=== PATIENT | female | born 1995 | race Caucasian/White ===

== ENCOUNTER 2017-08-08 17:49 | Emergency (ER) | payer SELFPAY ==
[~2017-08-08] VITALS: Ht 167.6 cm; Wt 68.0 kg
--- NOTE | 2017-08-08 18:15 | EKG ---
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
[2017-08-08] MEDS ORDERED: KETOROLAC 30 MG/ML VIAL. IV ONE (18:45)
[2017-08-08 18:48] LABS: BASO # 0.1 x10^3/uL (0.0-0.2); BASO % 1 % (0-3); EOS # 0.3 x10^3/uL (0.0-0.7); EOS % 5 % (0-3); HEMATOCRIT 40.2 % (36.0-47.0); HEMOGLOBIN 13.8 g/dL (12.0-15.5); LYMPH # 1.9 x10^3/uL (1.0-4.8); LYMPH % 27 % (24-48); MEAN CORPUSCULAR HEMOGLOBIN 33 pg (25-35); MEAN CORPUSCULAR HGB CONC 34 g/dL (31-37); MEAN CORPUSCULAR VOLUME 95 fL (79-100); MONO # 0.5 x10^3/uL (0.0-1.1); MONO % 7 % (0-9); NEUT # 4.2 x10^3uL (1.8-7.7); NEUT % 60 % (31-73); PLATELET COUNT 277 x10^3/uL (140-400); RED BLOOD COUNT 4.24 x10^6/uL (3.50-5.40); RED CELL DISTRIBUTION WIDTH 14.3 % (11.5-14.5)
[2017-08-08 19:02] LABS: ALBUMIN 3.7 g/dL (3.4-5.0); ALBUMIN/GLOBULIN RATIO 1.1 (1.0-1.7); CALCIUM 9.4 mg/dL (8.5-10.1); CREATININE 0.6 mg/dL (0.6-1.0); GFR 127.5; POTASSIUM 3.7 mmol/L (3.5-5.1); TOTAL BILIRUBIN 0.5 mg/dL (0.2-1.0); TOTAL PROTEIN 7.1 g/dL (6.4-8.2)
[2017-08-08] MEDS ORDERED: NAPR-514 PO (19:23)
--- NOTE | 2017-08-08 19:24 | PHYS DOC ---
Adult General Chief Complaint Chief Complaint: SHORTNESS OF BREATH HPI HPI Patient is a 22-year-old female who presents here today complaining of right- sided chest wall pain that started around 1 PM. Patient denies any known exacerbating. Patient presents pain increases with deep inspiration. Patient has any recent fevers shakes chills nausea vomiting diarrhea cough cold rhinorrhea abdominal pain dysuria frequency urgency right upper quadrant pain. Patient reports no change with exertion or rest. Patient reports only change with increased inspiration and cough. Review of systems: Constitutional: Denies fever or chills Eyes: Denies change in visual acuity, redness, or eye pain HENT: Denies nasal congestion or sore throat Respiratory: Denies cough or shortness of breath All other systems were reviewed and found to be within normal limits, except as documented in this note. Physical exam: Constitutional: Well developed, well nourished, no acute distress, non-toxic appearance. HENT: Normocephalic, atraumatic, bilateral external ears normal, nose normal. Eyes: PERRLA, EOMI, conjunctiva normal, no discharge. Neck: Normal range of motion, no tenderness, supple, no stridor. Cardiovascular: Heart rate regular rhythm, 100% repeatable tenderness to palpation to her right anterior chest wall. Daughter present repeatable discomfort with deep inspiration. Lungs & Thorax: Bilateral breath sounds clear to auscultation Abdomen: No abdominal distention. Skin: Warm, dry, no erythema, no rash. Back: Normal spinal curvature Extremities: No tenderness, no cyanosis, no clubbing, ROM intact, no edema. Neurologic: Alert and oriented X 3, normal motor function, normal sensory function, no focal deficits noted. Psychologic: Affect normal, judgement normal, mood normal. Patient's ER physical exam was most remarkable: EKG as interpreted by ER physician reveals: Normal sinus rhythm nonspecific ST- T wave abnormalities no STEMI. Chest x-ray as interpreted by ER physician reveals: Normal heart no infiltrates or effusions Labs reviewed: Normal Assessment and plan: 1. 22-year-old. This will right sided anterior chest wall pain. Most likely secondary mechanical strain. Workup was made cardiac etiology PE dissection cholecystitis extremely low and likelihood. Patient be given ibuprofen and instructions follow-up with her primary care physician for further evaluation of this pain. While the ER the patient was given Toradol IV with significant improvement in her discomfort. Patient's currently takes and her phone and laughing and smiling and does not appear to be in any acute distress. Current Medications Current Medications Current Medications Medications (Trade) Dose Ordered Sig/Juaquin Start Time Stop Time Status Last Admin Dose Admin Ketorolac Tromethamine (Toradol) 30 mg 1X ONCE 08/08/17 18:45 08/08/17 18:46 UNV Allergies Allergies Allergies Coded Allergies Type Severity Reaction Last Updated Verified No Known Drug Allergies 08/08/17 No Current Patient Data Lab Results Laboratory Tests Test 08/08/17 18:30 White Blood Count 7.0 x10^3/uL (4.0-11.0) Red Blood Count 4.24 x10^6/uL (3.50-5.40) Hemoglobin 13.8 g/dL (12.0-15.5) Hematocrit 40.2 % (36.0-47.0) Mean Corpuscular Volume 95 fL (79-100) Mean Corpuscular Hemoglobin 33 pg (25-35) Mean Corpuscular Hemoglobin Concent 34 g/dL (31-37) Red Cell Distribution Width 14.3 % (11.5-14.5) Platelet Count 277 x10^3/uL (140-400) Neutrophils (%) (Auto) 60 % (31-73) Lymphocytes (%) (Auto) 27 % (24-48) Monocytes (%) (Auto) 7 % (0-9) Eosinophils (%) (Auto) 5 % (0-3) H Basophils (%) (Auto) 1 % (0-3) Neutrophils # (Auto) 4.2 x10^3uL (1.8-7.7) Lymphocytes # (Auto) 1.9 x10^3/uL (1.0-4.8) Monocytes # (Auto) 0.5 x10^3/uL (0.0-1.1) Eosinophils # (Auto) 0.3 x10^3/uL (0.0-0.7) Basophils # (Auto) 0.1 x10^3/uL (0.0-0.2) Sodium Level 143 mmol/L (136-145) Potassium Level 3.7 mmol/L (3.5-5.1) Chloride Level 107 mmol/L (98-107) Carbon Dioxide Level 27 mmol/L (21-32) Anion Gap 9 (6-14) Blood Urea Nitrogen 8 mg/dL (7-20) Creatinine 0.6 mg/dL (0.6-1.0) Estimated GFR (Cockcroft-Gault) 127.5 BUN/Creatinine Ratio 13 (6-20) Glucose Level 86 mg/dL (70-99) Calcium Level 9.4 mg/dL (8.5-10.1) Total Bilirubin 0.5 mg/dL (0.2-1.0) Aspartate Amino Transferase (AST) 14 U/L (15-37) L Alanine Aminotransferase (ALT) 17 U/L (14-59) Alkaline Phosphatase 82 U/L (46-116) Troponin I Quantitative < 0.017 ng/mL (0-0.055) Total Protein 7.1 g/dL (6.4-8.2) Albumin 3.7 g/dL (3.4-5.0) Albumin/Globulin Ratio 1.1 (1.0-1.7) EKG EKG [] Radiology/Procedures Radiology/Procedures [] Course & Med Decision Making Course & Med Decision Making Pertinent Labs and Imaging studies reviewed. (See chart for details) [] Dragon Disclaimer Dragon Disclaimer This electronic medical record was generated, in whole or in part, using a voice recognition dictation system. Departure Departure: Impression: Primary Impression: Chest wall pain Disposition: 01 HOME, SELF-CARE Condition: IMPROVED Referrals: YOGI DUGAN DO (PCP) Patient Instructions: Chest Wall Pain Scripts Naproxen (NAPROXEN) 500 Mg Tablet 1 TAB PO BID, #20 TAB Prov: GILLIAN ENGEL MD 08/08/17 GILLIAN ENGEL MD Aug 08, 2017 19:24
[2017-08-08 19:58] VITALS: BP 119/79
--- NOTE | 2017-08-09 07:31 | RAD ---
Chest, 2 views, 08/08/2017: History: Shortness of breath, right-sided chest pain The heart size is normal. No pulmonary infiltrate is seen. There is no evidence of pleural fluid. IMPRESSION: No acute cardiopulmonary abnormality is detected.
== END 2017-08-08 19:56 | disposition home or self-care (01) ==
LOC: ER 17:49
DX: R07.89 Other chest pain (principal)
CPT/HCPCS: 36415; 71046; 80053; 84484; 85025; 93005; 96374; 99285; J1885

== ENCOUNTER 2020-06-09 09:43 | Emergency (ER) | payer SELFPAY ==
[~2020-06-09] VITALS: Ht 160 cm; Wt 54.4 kg
[~2020-06-09 09:43] MED LIST: NAPR-514 PO
[2020-06-09] MEDS ORDERED: IPRATRPIUM/ALBUTEROL 0.5/2.5MG 3 ML NEBU. NEB ONE ×2 (10:00→11:30)
[2020-06-09] MEDS ORDERED: predniSONE 20 MG TABLET PO ONE (10:15)
--- NOTE | 2020-06-09 10:48 | EKG ---
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
[2020-06-09 11:13] LABS: BASO % 0 % (0-3); EOS # 0.8 x10^3/uL (0.0-0.7); EOS % 8 % (0-3); HEMATOCRIT 42.6 % (36.0-47.0); HEMOGLOBIN 14.7 g/dL (12.0-15.5); LYMPH # 2.1 x10^3/uL (1.0-4.8); LYMPH % 22 % (24-48); MEAN CORPUSCULAR HEMOGLOBIN 33 pg (25-35); MEAN CORPUSCULAR HGB CONC 35 g/dL (31-37); MEAN CORPUSCULAR VOLUME 94 fL (79-100); MONO # 0.5 x10^3/uL (0.0-1.1); MONO % 6 % (0-9); NEUT # 6.1 x10^3uL (1.8-7.7); NEUT % 63 % (31-73); PLATELET COUNT 255 x10^3/uL (140-400); RED BLOOD COUNT 4.51 x10^6/uL (3.50-5.40); RED CELL DISTRIBUTION WIDTH 12.5 % (11.5-14.5); WHITE BLOOD COUNT 9.6 x10^3/uL (4.0-11.0)
[2020-06-09 11:24] LABS: CALCIUM 8.6 mg/dL (8.5-10.1); CREATININE 0.6 mg/dL (0.6-1.0); GFR 123.9; POTASSIUM 3.1 mmol/L (3.5-5.1)
[2020-06-09 11:36] LABS: ALBUMIN 3.4 g/dL (3.4-5.0); ALBUMIN/GLOBULIN RATIO 1.1 (1.0-1.7); TOTAL BILIRUBIN 0.2 mg/dL (0.2-1.0); TOTAL PROTEIN 6.6 g/dL (6.4-8.2)
[2020-06-09 11:41] LABS: INFLUENZA A PATIENT NEGATIVE (NEGATIVE); INFLUENZA B PATIENT NEGATIVE (NEGATIVE)
[2020-06-09 11:42] LABS: RSV PATIENT NEGATIVE (NEGATIVE)
--- NOTE | 2020-06-09 11:54 | PHYS DOC ---
Past History Past Medical History: No Pertinent History Past Surgical History: Alcohol Use: Occasionally Drug Use: None Adult General Chief Complaint Chief Complaint: SHORTNESS OF BREATH HPI HPI Patient is a 25-year-old female who denies any past however now presenting to the emergency department complaining of new onset of shortness of breath. Patient states that over the last 3 months she developed worsening sensation of difficulty breathing that suddenly increased in severity this morning to the point where she felt like she was unable to take a deep breath. Notes that her boyfriend was living with her daughter from asthma a few months ago. Denies any fever, chills, cough, dizziness or lightheadedness. Review of Systems Review of Systems Constitutional: Denies fever or chills [] Eyes: Denies change in visual acuity, redness, or eye pain [] HENT: Denies nasal congestion or sore throat [] Respiratory: Denies cough or shortness of breath [] Cardiovascular: No additional information not addressed in HPI [] GI: Denies abdominal pain, nausea, vomiting, bloody stools or diarrhea [] : Denies dysuria or hematuria [] Musculoskeletal: Denies back pain or joint pain [] Integument: Denies rash or skin lesions [] Neurologic: Denies headache, focal weakness or sensory changes [] Endocrine: Denies polyuria or polydipsia [] All other systems were reviewed and found to be within normal limits, except as documented in this note. Current Medications Current Medications Current Medications Medications (Trade) Dose Ordered Sig/Juaquin Start Time Stop Time Status Last Admin Dose Admin Albuterol/ Ipratropium (Duoneb) 6 ml 1X ONCE 06/09/20 11:30 06/09/20 11:31 DC 06/09/20 11:41 6 ML Prednisone (Prednisone) 60 mg 1X ONCE 06/09/20 10:15 06/09/20 10:16 DC 06/09/20 10:48 60 MG Allergies Allergies Allergies Coded Allergies Type Severity Reaction Last Updated Verified No Known Drug Allergies 06/09/20 No Physical Exam Physical Exam Constitutional: Well developed, well nourished, no acute distress, non-toxic appearance. [] HENT: Normocephalic, atraumatic, bilateral external ears normal, oropharynx moist, no oral exudates, nose normal. [] Eyes: PERRLA, EOMI, conjunctiva normal, no discharge. [] Neck: Normal range of motion, no tenderness, supple, no stridor. [] Cardiovascular:Heart rate regular rhythm, no murmur [] Lungs & Thorax: Severe rhonchorous breath sounds bilaterally with significant expiratory wheezing Abdomen: Bowel sounds normal, soft, no tenderness, no masses, no pulsatile masses. [] Skin: Warm, dry, no erythema, no rash. [] Back: No tenderness, no CVA tenderness. [] Extremities: No tenderness, no cyanosis, no clubbing, ROM intact, no edema. [] Neurologic: Alert and oriented X 3, normal motor function, normal sensory function, no focal deficits noted. [] Psychologic: Affect normal, judgement normal, mood normal. [] Current Patient Data Vital Signs Vital Signs Date Time Temp Pulse Resp B/P (MAP) Pulse Ox O2 Delivery O2 Flow Rate FiO2 06/09/20 09:53 98.2 94 22 140/96 (111) 97 Room Air Lab Results Laboratory Tests Test 06/09/20 10:40 06/09/20 10:44 06/09/20 11:40 White Blood Count 9.6 x10^3/uL (4.0-11.0) Red Blood Count 4.51 x10^6/uL (3.50-5.40) Hemoglobin 14.7 g/dL (12.0-15.5) Hematocrit 42.6 % (36.0-47.0) Mean Corpuscular Volume 94 fL (79-100) Mean Corpuscular Hemoglobin 33 pg (25-35) Mean Corpuscular Hemoglobin Concent 35 g/dL (31-37) Red Cell Distribution Width 12.5 % (11.5-14.5) Platelet Count 255 x10^3/uL (140-400) Neutrophils (%) (Auto) 63 % (31-73) Lymphocytes (%) (Auto) 22 % (24-48) L Monocytes (%) (Auto) 6 % (0-9) Eosinophils (%) (Auto) 8 % (0-3) H Basophils (%) (Auto) 0 % (0-3) Neutrophils # (Auto) 6.1 x10^3uL (1.8-7.7) Lymphocytes # (Auto) 2.1 x10^3/uL (1.0-4.8) Monocytes # (Auto) 0.5 x10^3/uL (0.0-1.1) Eosinophils # (Auto) 0.8 x10^3/uL (0.0-0.7) H Basophils # (Auto) 0.0 x10^3/uL (0.0-0.2) Sodium Level 142 mmol/L (136-145) Potassium Level 3.1 mmol/L (3.5-5.1) L Chloride Level 104 mmol/L (98-107) Carbon Dioxide Level 27 mmol/L (21-32) Anion Gap 11 (6-14) Blood Urea Nitrogen 6 mg/dL (7-20) L Creatinine 0.6 mg/dL (0.6-1.0) Estimated GFR (Cockcroft-Gault) 123.9 BUN/Creatinine Ratio 10 (6-20) Glucose Level 95 mg/dL (70-99) Calcium Level 8.6 mg/dL (8.5-10.1) Total Bilirubin 0.2 mg/dL (0.2-1.0) Aspartate Amino Transferase (AST) 15 U/L (15-37) Alanine Aminotransferase (ALT) 24 U/L (14-59) Alkaline Phosphatase 100 U/L (46-116) FD-Ldz-X-Type Natriuretic Peptide 21 pg/mL (0-124) Total Protein 6.6 g/dL (6.4-8.2) Albumin 3.4 g/dL (3.4-5.0) Albumin/Globulin Ratio 1.1 (1.0-1.7) Influenza Type A (Rapid) Negative (NEGATIVE) Influenza Type B (Rapid) Negative (NEGATIVE) POC RSV Rapid Screen Negative (NEGATIVE) POC Urine HCG, Qualitative hcg negative (Negative) EKG EKG [] Radiology/Procedures Radiology/Procedures [] Heart Score Risk Factors: Risk Factors: DM, Current or recent (<one month) smoker, HTN, HLP, family history of CAD, obesity. Risk Scores: Risk Factors: DM, Current or recent (<one month) smoker, HTN, HLP, family history of CAD, obesity. Course & Med Decision Making Course & Med Decision Making Pertinent Labs and Imaging studies reviewed. (See chart for details) 25-year-old female presented with new onset of significant expiratory wheezing likely suggesting new onset of asthma. Because of the sudden onset of this and no history will obtain an x-ray and labs to make sure there is no other underlying etiology or infectious cause. Also have to be considered of cardiogenic source. We will treat the patient with duo nebs and steroids and reevaluate. 12:49 -patient received duo nebs and steroids in [place] asymptomatic. Lungs are clear to auscultation. Labs and x-ray reviewed without any significant findings. At this time will discharge patient home with an albuterol inhaler, prednisone taper and primary care physician follow-up. I spoken with the patient and her caregivers. I explained the patient's condition, diagnoses and treatment plan based on the information available to me at this time. I have answered the patient and her caregiver's questions and addressed any concerns. The patient and her caregivers have a good understanding of patient's diagnosis, condition and treatment plan as can be expected at this point. Vital signs have been stable. Patient's condition is stable and appropriate for discharge from the emergency department. Patient will pursue further outpatient evaluation with primary care physician or other designated or consulting physician as outlined in the discharge instructions. The patient and/or caregivers are agreeable to this plan of care and follow-up instructions have been explained in detail. The patient and/or caregivers have received these instructions in written form and have expressed an understanding of the discharge instructions. The patient and/or caregivers are aware that any significant change of condition or worsening of symptoms should prompt immediate return to this or the closest emergency department or call to 911. [place] Disclaimer Dragon Disclaimer This electronic medical record was generated, in whole or in part, using a voice recognition dictation system. Departure Departure: Impression: Primary Impression: Acute asthma Disposition: 01 DC HOME SELF CARE/HOMELESS Condition: GOOD Referrals: YOGI DUGAN DO (PCP) Patient Instructions: Asthma Attacks, Prevention, Asthma, Adult Additional Instructions: EMERGENCY DEPARTMENT GENERAL DISCHARGE INSTRUCTIONS Thank you for coming to [facility] Emergency Department (ED) today and trusting us with you care. We trust that you had a positive experience in our Emergency Department. If you wish to speak to the department management, you may call the Director at [phone]. YOUR FOLLOW UP INSTRUCTIONS ARE FOLLOWS: 1. Do you have a private Doctor? If you do not have a private doctor, please ask for a resource list of physicians or clinics that may be able to assist you with follow up care. 2. The Emergency Physicain has interpreted your x-rays. The X-Ray specialist will also review them. If there is a change in the findings, you will be notified in 48 hours when at all possible. 3. A lab test or culture has been done, your results will be reviewed and you will be notified if you need a change in treatment. ADDITIONAL INSTRUCTIONS AND INFORMATION: 1. Your care today has been supervised by a physician who is specially trained in emergency care. Many problems require more than one evaluation for a complete diagnosis and treatment. We recommend that you schedule your follow up appointment as recommended to ensure complete treatment of you illness or injury. If you are unable to obtain follow up care and continue to have a problem, or if your condition worsens, we recommend that you return to the ED. 2. We are not able to safely determine your condition over the phone nor are we able to give sound medical advice over the phone. For these safety reasons, if you call for medical advice we will ask you to come to the ED for further evaluation. 3. If you have any questions regarding these discharge instructions please call the ED at [phone]. SAFETY INFORMATION: In the interest of safety, wellness, and injury prevention; we encourage you to wear your sealbelt, if you smoke; quite smoking, and we encourage family to use a protective helmet for bicycling and other sporting events that present an increased risk for head injury. IF YOUR SYMPTOMS WORSEN OR NEW SYMPTOMS DEVELOP, OR YOU HAVE CONCERNS ABOUT YOUR CONDITION; OR IF YOUR CONDITION WORSENS WHILE YOU ARE WAITING FOR YOUR FOLLOW UP APPOINTMENT; EITHER CONTACT YOUR PRIMARY CARE DOCTOR, THE PHYSICIAN WHOSE NAME AND NUMBER YOU WERE GIVEN, OR RETURN TO THE ED IMMEDIATELY. Scripts Prednisone (PREDNISONE) 20 Mg Tablet 1 TAB PO DAILY for asthma, #5 TAB Prov: DAVE OLIVER MD 06/09/20 Albuterol Sulfate (PROAIR HFA INHALER) 8.5 Gm Hfa.aer.ad 2 PUFF IH PRN Q4-6HRS PRN for wheezing for 21 Days, #1 INHALER 0 Refills Prov: DAVE OLIVER MD 06/09/20 DAVE OLIVER MD Jun 09, 2020 11:54
[2020-06-09 12:15] LABS: BACTERIA,URINE MANY /HPF (0-FEW); BILIRUBIN,URINE NEG (NEG); CLARITY,URINE HAZY; COLOR,URINE YELLOW; GLUCOSE,URINE NEG (NEG); NITRITE,URINE NEG (NEG); RBC,URINE RARE /HPF (0-2); SQUAMOUS EPITHELIAL CELL,UR MANY /LPF; UROBILINOGEN,URINE 0.2 mg/dL (0.2 mg/dL)
--- NOTE | 2020-06-09 12:19 | RAD ---
EXAM: Chest, single view. HISTORY: Short of breath. COMPARISON: 08/08/2017 FINDINGS: A frontal view of the chest obtained. There is no infiltrate, pleural effusion or pneumotho rax. The heart is normal in size. IMPRESSION: No acute pulmonary finding. Electronically signed by: Selam Melgar MD (06/09/2020 12:16 PM) [id number]
[2020-06-09] MEDS ORDERED: PRED20TA PO (12:51)
[2020-06-09] MEDS ORDERED: ALBU2.5V8 IH (12:51)
[2020-06-09 13:20] VITALS: BP 101/63
== END 2020-06-09 13:20 | disposition home or self-care (01) ==
LOC: ER 09:43
DX: J45.998 Other asthma (principal); Z20.822 Contact with and (suspected) exposure to COVID-19
CPT/HCPCS: 36415; 71045; 80053; 81001; 81025; 83880; 85025; 87420; 87804; 93005; 94640; 99285; C9803; J7512; U0003

== ENCOUNTER 2020-08-04 14:24 | Emergency (ER) | payer SELFPAY ==
[~2020-08-04] VITALS: Ht 160 cm; Wt 55.3 kg
[~2020-08-04 14:24] MED LIST changes: +ALBU2.5V8 IH; +PRED20TA PO
[2020-08-04] MEDS ORDERED: FLUT9.9S NS (14:47)
[2020-08-04] MEDS ORDERED: CETI10TA74 PO (14:47)
--- NOTE | 2020-08-04 14:48 | PHYS DOC ---
Past History Past Medical History: No Pertinent History Past Surgical History: Alcohol Use: Occasionally Drug Use: None Adult General Chief Complaint Chief Complaint: SHORTNESS OF BREATH HPI HPI Patient is a 25yo female presenting for cough. Onset was 3-4 days ago. Nothing known makes better or worse. Denies any pain, sick contact, travel or covid-19 exposure. No known medical issues, no medication use on a daily basis. She admits smoking cigarettes daily and using recreational percocets. No fever, chills, cp, shob, ap, n/v/d, dysuria Review of Systems Review of Systems General: Appears well, non toxic, and comfortable Skin: Warm, dry. Normal for ethnicity. HEENT: Atraumatic. PERRLA. Rhinorrhea and congestion. Nasal turbinates boggy b/l. Moist mucous membranes. Uvula midline. Maintaining secretions. No phonation changes. Neck: Trachea midline. Normal ROM. No stridor. Respiratory: Normal WOB. CTAB w/o w/r/r. No tachypnea. Cardiovascular: Regular rate and rhythm. Normal peripheral perfusion. Abdomen: Soft. Non tender. No distension. Back: Normal ROM. Musculoskeletal: No swelling or deformity. Neuro: Alert and oriented x 4. MAEE. Lymph: No cervical LAD. Psych: Normal affect and mood. Fourteen body systems of review of systems have been reviewed. See HPI for pertinent positives and negative responses, other cardozo all other systems are negative, non-pertinent or non-contributory Allergies Allergies Allergies Coded Allergies Type Severity Reaction Last Updated Verified No Known Drug Allergies 08/04/20 No Physical Exam Physical Exam General: Appears well, non toxic, and comfortable Skin: Warm, dry. Normal for ethnicity. HEENT: Atraumatic. PERRLA. Rhinorrhea and congestion. Nasal turbinates boggy b/l. Moist mucous membranes. Uvula midline. Maintaining secretions. No phonation changes. Neck: Trachea midline. Normal ROM. No stridor. Respiratory: Normal WOB. CTAB w/o w/r/r. No tachypnea. Cardiovascular: Regular rate and rhythm. Normal peripheral perfusion. Abdomen: Soft. Non tender. No distension. Back: Normal ROM. Musculoskeletal: No swelling or deformity. Neuro: Alert and oriented x 4. MAEE. Lymph: No cervical LAD. Psych: Normal affect and mood. Current Patient Data Vital Signs Vital Signs Date Time Temp Pulse Resp B/P (MAP) Pulse Ox O2 Delivery O2 Flow Rate FiO2 08/04/20 14:33 99.1 98 18 117/69 (85) 94 Room Air Vital Signs Date Time Temp Pulse Resp B/P (MAP) Pulse Ox O2 Delivery O2 Flow Rate FiO2 08/04/20 15:18 89 20 118/65 (82) 93 08/04/20 14:33 99.1 Room Air EKG EKG [] Radiology/Procedures Radiology/Procedures [] Heart Score C/O Chest Pain: No Risk Factors: Risk Factors: DM, Current or recent (<one month) smoker, HTN, HLP, family history of CAD, obesity. Risk Scores: Risk Factors: DM, Current or recent (<one month) smoker, HTN, HLP, family history of CAD, obesity. Course & Med Decision Making Course & Med Decision Making Hemodynamically stable patient with history and physical exam consistent with post-nasal drip Discussed no indication for additional ER workup. Supportive care advised for likely transient self-limiting illness Strict return precautions discussed with good understanding by patient, all questions and concerns addressed prior to departure Dragon Disclaimer Dragon Disclaimer This electronic medical record was generated, in whole or in part, using a voice recognition dictation system. Departure Departure: Impression: Primary Impression: Cough Additional Impression: Post-nasal drip Disposition: 01 DC HOME SELF CARE/HOMELESS Condition: GOOD Referrals: PCP,TERA (PCP) Patient Instructions: Cough, Adult, [id number] Additional Instructions: You were seen in the Emergency Department for evaluation of a cough. As discussed there is no indication for further ER intervention based on my history and physical exam. It is likely to be a viral condition, however you should follow up with your primary doctor for further evaluation. Coughing up blood, fever, and shortness of breath are examples of reasons to come back to the emergency department. Please utilize prescribed allergy pill and nasal spray as instructed. Please return to the ED if you have new or worrisome symptoms. Scripts Fluticasone Propionate (Flonase Allergy Relief) 9.9 Ml [place].susp 2 SPRAYS NS DAILY for POSTNASAL DRIP, #1 ML Prov: HARDEEP ROBERTS DO 08/04/20 Cetirizine Hcl (ZYRTEC) 10 Mg Tablet 1 TAB PO DAILY for POSTNASAL DRIP, #30 TAB 2 Refills Prov: HARDEEP ROBERTS DO 08/04/20 Problem Qualifiers HARDEEP ROBERTS DO Aug 04, 2020 14:48
[2020-08-04 15:18] VITALS: BP 118/65
== END 2020-08-04 15:21 | disposition home or self-care (01) ==
LOC: ER 14:24
DX: R05 Cough (principal); R09.82 Postnasal drip; F17.210 Nicotine dependence, cigarettes, uncomplicated
CPT/HCPCS: 99283

== ENCOUNTER 2020-08-06 23:42 | Emergency (ER) | payer SELFPAY ==
[~2020-08-06] VITALS: Ht 160 cm; Wt 55.3 kg
[~2020-08-06 23:42] MED LIST changes: +CETI10TA74 PO; +FLUT9.9S NS
[2020-08-06] MEDS ORDERED: IPRATRPIUM/ALBUTEROL 0.5/2.5MG 3 ML NEBU. ONE (23:48)
[2020-08-06 23:52] VITALS: BP 112/63
[2020-08-07] MEDS ORDERED: DEXA4TAB PO (00:37)
--- NOTE | 2020-08-07 00:37 | PHYS DOC ---
Past History Past Medical History: Asthma Past Surgical History: Alcohol Use: None Drug Use: None Adult General Chief Complaint Chief Complaint: ASTHMA HPI HPI Patient is a 25-year-old female with a past medical history of asthma who presents to the emergency department with a chief complaint of asthma exacerbation. States this been going on several days and she was here a couple of days ago for this. States that she got some breathing treatments and that was sent home. States she did not get any corticosteroids. States that everybody in her household smokes and is hard to get away from. Denies any recent travel, traumas, fevers, chest pain, abdominal pain, nausea, vomiting, dysuria, hematuria. Review of Systems Review of Systems Review of systems otherwise unremarkable except noted in HPI Current Medications Current Medications Current Medications Medications (Trade) Dose Ordered Sig/Juaquin Start Time Stop Time Status Last Admin Dose Admin Albuterol/ Ipratropium (Duoneb) 3 ml STK-MED ONCE 08/06/20 23:48 08/06/20 23:48 DC Allergies Allergies Allergies Coded Allergies Type Severity Reaction Last Updated Verified No Known Drug Allergies 08/04/20 No Physical Exam Physical Exam Constitutional: Well developed, well nourished, no acute distress, no-toxic appearance. [] Cardiovascular: Sinus tachycardia Lungs & Thorax: Initially with global significant end expiratory wheezes. On reassessment patient's wheezes had significantly diminished and was breathing well Skin: Warm, dry, no erythema, no rash. [] Extremities: No tenderness, no cyanosis, no clubbing, ROM intact, no edema. [] Neurologic: Alert and oriented X 3, normal motor function, normal sensory function, no focal deficits noted. [] Psychologic: Affect normal, judgement normal, mood normal. [] Current Patient Data Vital Signs Vital Signs Date Time Temp Pulse Resp B/P (MAP) Pulse Ox O2 Delivery O2 Flow Rate FiO2 08/06/20 23:52 97.9 119 22 112/63 (79) 95 duoneb breathing treatment EKG EKG [] Radiology/Procedures Radiology/Procedures [] Heart Score C/O Chest Pain: No Risk Factors: Risk Factors: DM, Current or recent (<one month) smoker, HTN, HLP, family history of CAD, obesity. Risk Scores: Risk Factors: DM, Current or recent (<one month) smoker, HTN, HLP, family history of CAD, obesity. Course & Med Decision Making Course & Med Decision Making Patient is a 25-year-old female who presents with asthma exacerbation. Vital signs notable for sinus tachycardia and tachypnea with no hypoxia. Physical exam noted above. Patient had a total of 3 breathing treatments and corticosteroids. Sent home with prescription of corticosteroids. Patient states she has plenty of asthma medications left at home. Discussed all findings with patient and advised to take prescription steroids as prescribed. Advised to use albuterol medications as prescribed over the next few days. Advised to call primary care physician first thing in the morning to update on ED visit and asthma medication status. Gave return precautions to the ED. Patient grateful, verbalized understanding and agreed with plan of discharge. [] Dragon Disclaimer Dragon Disclaimer This electronic medical record was generated, in whole or in part, using a voice recognition dictation system. Departure Departure: Impression: Primary Impression: Asthma exacerbation Disposition: 01 DC HOME SELF CARE/HOMELESS Condition: GOOD Referrals: PCP,NO (PCP) Patient Instructions: Asthma Prevention-Brief, Asthma, Acute Bronchospasm Additional Instructions: Please read all the attached information. Please take your steroids as prescribed. Please use all your albuterol medications as prescribed at home prophylactically over the next 2 days as discussed. Please call your primary care physician first thing in the morning to discuss your ED visit and asthma medication status. Please come back to the ED with new or concerning symptoms. Scripts Albuterol Sulfate (PROVENTIL HFA INHALER) 6.7 Gm Hfa.aer.ad 2 PUFF INH PRN Q4HRS PRN for FOR ASTHMA for 10 Days, #3 EACH 0 Refills Prov: RICKI JOHNSON MD 08/07/20 Dexamethasone (DEXAMETHASONE) 4 Mg Tablet 1 TAB PO DAILY PRN for asthma for 5 Days, #5 TAB Prov: RICKI JOHNSON MD 08/07/20 RICKI JOHNSON MD Aug 07, 2020 00:37
[2020-08-07] MEDS ORDERED: ALBU2.5V8 INH (00:43)
[2020-08-07] MEDS ORDERED: ALBUTEROL SULFATE 8GM INHALER. ONE (00:43)
[2020-08-07] MEDS ORDERED: IPRATRPIUM/ALBUTEROL 0.5/2.5MG 3 ML NEBU. NEB ONE (00:45)
== END 2020-08-07 01:05 | disposition home or self-care (01) ==
LOC: ER 23:42
DX: J45.901 Unspecified asthma with (acute) exacerbation (principal); Z98.890 Other specified postprocedural states
CPT/HCPCS: 94640; 99285; 94664

== ENCOUNTER 2020-09-03 04:57 | Emergency (ER) | payer SELFPAY ==
[~2020-09-03] VITALS: Ht 160 cm; Wt 55.3 kg
[~2020-09-03 04:57] MED LIST changes: +ALBU2.5V8 INH; +DEXA4TAB PO
--- NOTE | 2020-09-03 05:01 | PHYS DOC ---
Past History Past Medical History: Anxiety, Asthma, Bronchitis, UTI (IVIS SHERIFF MD) Past Surgical History: (IVIS SHERIFF MD) Smoking: Cigarettes Alcohol Use: Occasionally Drug Use: Benzodiazepine, Marijuana, Opiates (IVIS SHERIFF MD) General Adult HPI: HPI: "Yes .. I took an over dose.. I took about [address]ax and about [address] P[address]ocet'.. and I was.. going to kill myself.. I dont give a fuck.. my boy friend recently of overdose of street percocet.. I just fucking want to go home ... and get his gun.. it is the last thing., I have from him..." Patient is a 25 year old female who presents with above hx and admission she tried to kill herself tonight with an overdose. Patient reportedly took an overdose of street Xanax and Percocet approximately 1600 hrs. yesterday afternoon. Patient states she was depressed about the loss of her boyfriend and angry after an argument with her parents. Patient has history of past depression, anxiety, and suicidal ideation. Patient does have a history of past polysubstance abuse., Asthma, bronchitis. Patient not currently following with primary care. Patient denies any recent travel or specific ill contacts. Patient denies any history immunosuppression. (IVIS SHERIFF MD) Review of Systems: Review of Systems: Constitutional: Denies fever or chills Eyes: Denies change in visual acuity HENT: Denies nasal congestion or sore throat Respiratory: Denies cough or shortness of breath Cardiovascular: Denies chest pain or edema GI: Denies abdominal pain, nausea, vomiting, bloody stools or diarrhea : Denies dysuria Musculoskeletal: Denies back pain or joint pain Integument: Denies rash Neurologic: Denies headache, focal weakness or sensory changes Endocrine: Denies polyuria or polydipsia Lymphatic: Denies swollen glands Psychiatric: Complains of depression, anxiety and does express suicidal ideation and suicide attempt by overdose. (IVIS SHERIFF MD) Family History: Family History: Noncontributory to presentation. (IVIS SHERIFF MD) Current Medications: Current Meds: See nursing for home meds (IVIS SHERIFF MD) Allergies: Allergies: Allergies Coded Allergies Type Severity Reaction Last Updated Verified No Known Drug Allergies 08/04/20 No (IVIS SHERIFF MD) Physical Exam: PE: Constitutional: in acute emotional distress, agitated and depressed, tearful, HENT: Normocephalic, atraumatic, bilateral external ears normal, oropharynx moist, no oral exudates, nose swollen turbinates and clear rhinorrhea] Eyes: PERRLA, EOMI, conjunctiva normal, no discharge. [] Neck: Normal range of motion, no tenderness, supple, no stridor. [] Cardiovascular:Heart rate regular rhythm, no murmur [] Lungs & Thorax: Bilateral breath sounds equal apex with scattered wheezes auscultation [] Abdomen: Bowel sounds normal, soft, no tenderness, no masses, no pulsatile masses. Old surgery scar. Skin: Warm, dry, no erythema, no rash. Multiple tattoos. Back: No tenderness, no CVA tenderness. [] Extremities: No tenderness, no cyanosis, no clubbing, ROM intact, no edema. [] Neurologic: Alert and oriented X 3, moves all extremities on request, does have distal sensory,, no gross focal deficits noted. [] Psychologic: Affect anxious, agitated, depressed,angry,, mood - does admit to suicidal ideation and attempt yesterday afternoon. (IVIS SHERIFF MD) EKG: EKG: My interpretation EKG shows a sinus rhythm at 68 bpm. No acute morphology [] (IVIS SHERIFF MD) Radiology/Procedures: Radiology/Procedures: [][address] [address] IMAGING REPORT Signed PATIENT: JAYDEN HOOVER MACCOUNT: [id number] : 1995 LOCATION: ER AGE: 25 SEX: F EXAM STATUS: REG ER ORD. PHYSICIAN: IVIS SHERIFF MD REASON: dyspnea PROCEDURE: PORTABLE CHEST 1V XR CHEST 1V Clinical History: Reason: dyspnea / Spl. Instructions: / History: Technique: AP view of the chest was obtained at 09/03/2020 5:45 AM. Comparison: June 09, 2020. Findings: The cardiomediastinal silhouette is normal. The pulmonary vasculature is normal. The lungs and pleural margins are clear. Impression: No evidence of an acute cardiopulmonary process. Electronically signed by: Chelsey Sotomayor III, MD (09/03/2020 6:03 AM) [facility] DICTATED AND SIGNED BY: CHELSEY SOTOMAYOR III, MD DATE: 09/03/20 06 CC: IVIS SHERIFF MD; PCP,NO ~MTH0 0 (IVIS SHERIFF MD) Heart Score: C/O Chest Pain: N/A HEART Score for Chest Pain: HEART Score for Chest Pain Response (Comments) Value History Slighlty/Non-Suspicious 0 ECG Normal 0 Age < 45 0 Risk Factors 1 or 2 Risk Factors 1 Troponin < Normal Limit 0 Total 1 Risk Factors: Risk Factors: DM, Current or recent (<one month) smoker, HTN, HLP, family history of CAD, obesity. Risk Scores: Score 0 - 3: 2.5% MACE over next 6 weeks - Discharge Home Score 4 - 6: 20.3% MACE over next 6 weeks - Admit for Clinical Observation Score 7 - 10: 72.7% MACE over next 6 weeks - Early Invasive Strategies (IVIS SHERIFF MD) Course & Med Decision Making: Course & Med Decision Making Pertinent Labs and Imaging studies reviewed. (See chart for details) See PAT eval. - pending at shift change. Pt. endorsed to Dr. Ha at shift change-she will make disposition on patient. Impression: 1. Suicidal ideation/suicidal attempt 2. Depression 3. UTI 4. History of asthma bronchitis [] (IVIS SHERIFF MD) Course & Med Decision Making Assumed care of patient at check out from Dr. Sheriff. At check out, Pat team consult was pending and patient is stable. Pat team initially decided that patient was safe for discharge. Patient's mother called and stated that the patient has tried to commit suicide multiple times. Plans were made for patient to be evaluated by [facility]. Patient became very agitated and started threatening staff. She started banging on locke and kicking. She was given Geodon for symptom relief. (CICI HA MD) Dragon Disclaimer: Dragon Disclaimer: This electronic medical record was generated, in whole or in part, using a voice recognition dictation system. (IVIS SHERIFF MD) Departure Departure: Impression: Primary Impression: Intoxication Additional Impression: Depression Disposition: 01 HOME / SELF CARE / HOMELESS Condition: IMPROVED Referrals: PCP,TERA (PCP) Patient Instructions: Suicidal Feelings, How to Help Yourself Dragon Disclaimer This chart was dictated in whole or in part using Voice Recognition software in a busy, high-work load, and often noisy Emergency Department environment. It may contain unintended and wholly unrecognized errors or omissions. (IVIS SHERIFF MD) Dragon Disclaimer This chart was dictated in whole or in part using Voice Recognition software in a busy, high-work load, and often noisy Emergency Department environment. It may contain unintended and wholly unrecognized errors or omissions. (CICI HA MD) VIIS SHERIFF MD Sep 03, 2020 05:01 CICI HA MD Sep 03, 2020 06:53
[2020-09-03] MEDS: IV RINGERS SOLUTION,LACTATED 1,000 ML IV SCH (05:30)
--- NOTE | 2020-09-03 05:53 | EKG ---
[address] [address] Test Date: 2020-09-03 Test Time: 05:46:40 Pat Name: JAYDEN HOOVER Department: Room: Gender: F [employer]: : 1995 Requested By: IVIS CARLSON Order Number: [id number] Reading MD: Measurements Intervals [place] Rate: 68 P: 57 OH: 188 QRS: 66 QRSD: 86 T: 57 QT: 368 QTc: 396 Interpretive Statements SINUS RHYTHM NO SPECIFIC ECG ABNORMALITIES RI6.02 No previous ECG available for comparison
[2020-09-03] MEDS ORDERED: MVI, ADULT NO.4 WITH VIT K 10 ML, THIAMINE INJ 100 MG in IV RINGERS SOLUTION,LACTATED 1... IV ONE (06:00)
[2020-09-03 06:05] LABS: BACTERIA,URINE MANY /HPF (0-FEW); BILIRUBIN,URINE NEG (NEG); CLARITY,URINE HAZY; COLOR,URINE YELLOW; GLUCOSE,URINE NEG (NEG); NITRITE,URINE POS (NEG); RBC,URINE OCC /HPF (0-2); SQUAMOUS EPITHELIAL CELL,UR MOD /LPF; UROBILINOGEN,URINE 0.2 mg/dL (0.2 mg/dL); WBC,URINE >40 /HPF (0-4)
[2020-09-03 06:06] LABS: BARBITURATES NEG (NEG); BENZODIAZEPINES POS (NEG); CANNABINOIDS POS (NEG); COCAINE NEG (NEG); METHADONE NEG (NEG); OPIATES NEG (NEG); PHENCYCLIDINE NEG (NEG)
--- NOTE | 2020-09-03 06:06 | RAD ---
XR CHEST 1V Clinical History: Reason: dyspnea / Spl. Instructions: / History: Technique: AP view of the chest was obtained at 09/03/2020 5:45 AM. Comparison: June 09, 2020. Findings: The cardiomediastinal silhouette is normal. The pulmonary vasculature is normal. The lungs and pleura l margins are clear. Impression: No evidence of an acute cardiopulmonary process. Electronically signed by: Presley Sierra III, MD (09/03/2020 6:03 AM) [facility]
[2020-09-03 06:07] LABS: AMPHETAMINE/METHAMPHETAMINE NEG (NEG)
[2020-09-03 06:46] LABS: BASO # 0.1 x10^3/uL (0.0-0.2); BASO % 1 % (0-3); EOS # 0.9 x10^3/uL (0.0-0.7); EOS % 8 % (0-3); HEMATOCRIT 43.2 % (36.0-47.0); HEMOGLOBIN 14.5 g/dL (12.0-15.5); LYMPH # 2.2 x10^3/uL (1.0-4.8); LYMPH % 19 % (24-48); MEAN CORPUSCULAR HEMOGLOBIN 32 pg (25-35); MEAN CORPUSCULAR HGB CONC 34 g/dL (31-37); MEAN CORPUSCULAR VOLUME 96 fL (79-100); MONO # 0.6 x10^3/uL (0.0-1.1); MONO % 5 % (0-9); NEUT # 7.7 x10^3uL (1.8-7.7); NEUT % 67 % (31-73); PLATELET COUNT 253 x10^3/uL (140-400); RED BLOOD COUNT 4.48 x10^6/uL (3.50-5.40); RED CELL DISTRIBUTION WIDTH 12.7 % (11.5-14.5); WHITE BLOOD COUNT 11.4 x10^3/uL (4.0-11.0)
[2020-09-03 07:09] LABS: PREG TEST PT QUAL NEGATIVE (NEG)
[2020-09-03 07:15] LABS: CALCIUM 9.5 mg/dL (8.5-10.1); CREATININE 0.6 mg/dL (0.6-1.0); GFR 123.9; POTASSIUM 3.7 mmol/L (3.5-5.1)
[2020-09-03 07:19] LABS: ACETAMIN < 2.0 mcg/mL (10-30)
[2020-09-03 07:20] LABS: ALBUMIN 3.8 g/dL (3.4-5.0); DIRECT BILIRUBIN 0.1 mg/dL (0.0-0.2); MAGNESIUM 1.9 mg/dL (1.8-2.4); TOTAL BILIRUBIN 0.2 mg/dL (0.2-1.0); TOTAL PROTEIN 6.8 g/dL (6.4-8.2)
[2020-09-03 07:22] LABS: ETHANOL < 10 mg/dL (0-10); SALIC 3.7 mg/dL (2.8-20.0)
[2020-09-03] MEDS: ZIPRASIDONE IM 20 MG VIAL. IM ONE (08:24)
[2020-09-04 01:40] VITALS: BP 119/82
== END 2020-09-04 01:40 | disposition home or self-care (01) ==
LOC: ER 04:57
DX: T42.4X2A Poisoning by benzodiazepines, intentional self-harm, initial encounter (principal); T50.992A Poisoning by other drugs, medicaments and biological substances, intentional self-harm, initial encounter; R45.851 Suicidal ideations; F32.9 Major depressive disorder, single episode, unspecified; N39.0 Urinary tract infection, site not specified; J45.909 Unspecified asthma, uncomplicated; F41.9 Anxiety disorder, unspecified; F17.210 Nicotine dependence, cigarettes, uncomplicated; F12.10 Cannabis abuse, uncomplicated; F11.10 Opioid abuse, uncomplicated; F19.10 Other psychoactive substance abuse, uncomplicated; Z20.822 Contact with and (suspected) exposure to COVID-19; Y92.89 Other specified places as the place of occurrence of the external cause
CPT/HCPCS: 36415; 71045; 80048; 80076; 80307; 80329; 81001; 81025; 82550; 83690; 83735; 84443; 84484; 84703; 85025; 85610; 85730; 87086; 87426; 93005; 96372; 99285; G0480; J3486; U0003

== ENCOUNTER 2020-11-26 20:09 | Emergency (ER) | payer SELFPAY ==
[~2020-11-26] VITALS: Ht 160 cm; Wt 55.5 kg
--- NOTE | 2020-11-26 20:43 | PHYS DOC ---
Past History Past Medical History: Anxiety, Asthma, Bronchitis, UTI Past Surgical History: Smoking: Cigarettes Alcohol Use: Occasionally Drug Use: Benzodiazepine, Marijuana, Opiates Adult General Chief Complaint Chief Complaint: ANKLE PROBLEM HPI HPI Patient is a 25 year old female who presents with left ankle and foot pain. Last night she was having an argument with someone and in anger jumped off a roof approximately 8 feet in height. She then slept most of the day but noticed as she started walking that her left heel and foot has significant pain on weightbearing. She denies any pain to the calf knee thigh or hip. Denies any neck or back pain. Denies hitting her head or having loss of consciousness. She states that she was not drinking alcohol and was not under influence of anything at the time. She also states that she has a safe place to live with her mother. She denies being suicidal. She has no other injuries. Review of Systems Review of Systems Constitutional: Denies fever or chills Eyes: Denies change in visual acuity, redness, or eye pain HENT: Denies nasal congestion or sore throat Respiratory: Denies cough or shortness of breath Cardiovascular: No additional information not addressed in HPI GI: Denies abdominal pain, nausea, vomiting, bloody stools or diarrhea : Denies dysuria or hematuria Musculoskeletal: Denies back pain or joint pain left foot pain as described above. Integument: Denies rash or skin lesions Neurologic: Denies headache, focal weakness or sensory changes Endocrine: Denies polyuria or polydipsia All other systems were reviewed and found to be within normal limits, except as documented in this note. Allergies Allergies Allergies Coded Allergies Type Severity Reaction Last Updated Verified No Known Drug Allergies 08/04/20 No Physical Exam Physical Exam Constitutional: Well developed, well nourished, no acute distress, non-toxic appearance. HENT: Normocephalic, atraumatic, bilateral external ears normal, oropharynx moist, no oral exudates, nose normal. Eyes: PERRLA, EOMI, conjunctiva normal, no discharge. Neck: Normal range of motion, no tenderness, supple. Cardiovascular:Heart rate regular rhythm, no murmur Lungs & Thorax: Bilateral breath sounds clear to auscultation Abdomen: Bowel sounds normal, soft, no tenderness, no masses, no pulsatile masses. Skin: Warm, dry, no erythema, no rash. Back: No tenderness, no CVA tenderness. Extremities: Left leg examination reveals no significant swelling of the ankle or calf. There is mild swelling of the of the heel area along with tenderness on palpation. There is a mild tenderness dorsally in the same location. There is no tenderness of any of the toes. Bilateral malleoli are without any tenderness. There is no calf, knee, thigh, hip tenderness. There is normal DP and PT pulses. The rest of the extremity examination is normal. Neurologic: Alert and oriented X 3, normal motor function, normal sensory function, no focal deficits noted. Psychologic: Affect normal, judgement normal, mood normal. Current Patient Data Vital Signs Vital Signs Date Time Temp Pulse Resp B/P (MAP) Pulse Ox O2 Delivery O2 Flow Rate FiO2 11/26/20 20:20 99.0 120 24 99/58 95 Room Air EKG EKG [] Radiology/Procedures Radiology/Procedures X-ray of the foot and the calcaneus as interpreted by radiology shows no abnormalities with joint space alignment and there are no acute osseous abnormalities. Heart Score C/O Chest Pain: No Risk Factors: Risk Factors: DM, Current or recent (<one month) smoker, HTN, HLP, family history of CAD, obesity. Risk Scores: Risk Factors: DM, Current or recent (<one month) smoker, HTN, HLP, family history of CAD, obesity. Course & Med Decision Making Course & Med Decision Making Pertinent Labs and Imaging studies reviewed. (See chart for details) Patient presented with isolated injury to the left foot. She has no other complain or physical finding. She has safe place to return and this was not a suicidal attempt. She has no indication of fracture on x-rays. She does have difficulty with full weightbearing. I have advised her to stay off of her foot and use crutches as instructed from the emergency department. She can take ibuprofen for pain medication. I further advised her that if her pain does not significantly improve in the next 2 to 3 days, she should follow-up with orthopedic surgery for further reevaluation. [] Dragon Disclaimer Dragon Disclaimer This electronic medical record was generated, in whole or in part, using a voice recognition dictation system. Departure Departure: Impression: Primary Impression: Contusion of left foot Disposition: HOME / SELF CARE / HOMELESS Condition: STABLE Referrals: IVIS RODAS MD Patient Instructions: Foot Contusion Additional Instructions: Stay off your left foot as much as possible, keep it elevated at night and if yo ur pain does not significantly improved in 2 days, please see orthopedic surgeon. Use [id number] Motrin for pain management. KAYLA POLANCO MD Nov 26, 2020 20:43
--- NOTE | 2020-11-26 20:57 | RAD ---
EXAMINATION: XR FOOT_LEFT 3 VIEWS, XR OS CALCIS_LT 2+ VIEWS CLINICAL HISTORY: Left foot and heel injury from jumping, pain TECHNIQUE: XR FOOT_LEFT 3 VIEWS, XR OS CALCIS_LT 2+ VIEWS Number of Images/Views: 3 foot, 2 calcaneus COMPARISON: None FINDINGS: Joint spaces and alignment maintained. No acute fracture. Mild soft tissue prominence along the dorsa l forefoot. IMPRESSION: No acute osseous abnormality. Electronically signed by: Sesar Middleton DO (11/26/2020 8:54 PM) [facility]
[2020-11-26 21:21] VITALS: BP 102/52
== END 2020-11-26 21:21 | disposition home or self-care (01) ==
LOC: ER 20:09
DX: S90.32XA Contusion of left foot, initial encounter (principal); F41.9 Anxiety disorder, unspecified; J45.909 Unspecified asthma, uncomplicated; F17.210 Nicotine dependence, cigarettes, uncomplicated; Z87.440 Personal history of urinary (tract) infections; W17.89XA Other fall from one level to another, initial encounter; Y93.39 Activity, other involving climbing, rappelling and jumping off; Y92.89 Other specified places as the place of occurrence of the external cause; Y99.8 Other external cause status
CPT/HCPCS: 73630; 73650; 99284